=== PATIENT | female | born 1990 | race Caucasian/White ===

== ENCOUNTER 2017-05-18 21:07 | Emergency (ER) | payer OTHER ==
[~2017-05-18] VITALS: Ht 172.7 cm; Wt 121.1 kg
[2017-05-18 21:20] VITALS: BP 142/78
--- NOTE | 2017-05-18 22:01 | PHYS DOC ---
Past Medical History Past Medical History: Bipolar, Other Additional Past Medical Histor: hydronitus supiativia Past Surgical History: Cholecystectomy, Other Additional Past Surgical Histo: wide excision on right axillary Alcohol Use: None Drug Use: None Adult General Chief Complaint Chief Complaint: UPPER EXTREMITY PAIN [facility] HPI Patient is a 26 year old female who presents with left axilla pain from chronic hydradenitis suppurative disease. Patient states she is waiting to have surgery on his left axilla done but she cannot find a doctor locally that can do the procedure. She states she had the procedure done in [place] a couple years ago to the right axilla and it cleared the problem. She states she presented to the ED today because her hydrocodone was not touching her pain. Review of Systems Review of Systems Constitutional: Denies fever or chills [] Eyes: Denies change in visual acuity, redness, or eye pain [] HENT: Denies nasal congestion or sore throat [] Respiratory: Denies cough or shortness of breath [] Cardiovascular: No additional information not addressed in HPI [] GI: Denies abdominal pain, nausea, vomiting, bloody stools or diarrhea [] : Denies dysuria or hematuria [] Musculoskeletal: Denies back pain or joint pain [] Integument: left axilla pain from chronic hydradenitis suppurative disease Neurologic: Denies headache, focal weakness or sensory changes [] Endocrine: Denies polyuria or polydipsia [] Current Medications Current Medications Current Medications Medications (Trade) Dose Ordered Sig/Caitlin Start Time Stop Time Status Last Admin Dose Admin Fentanyl Citrate (Fentanyl 2ml Vial) 75 mcg 1X ONCE 05/18/17 22:15 05/18/17 22:16 Allergies Allergies Allergies Coded Allergies Type Severity Reaction Last Updated Verified morphine Allergy Unknown 05/18/17 Yes Physical Exam Physical Exam Constitutional: Well developed, well nourished, no acute distress, non-toxic appearance. [] Skin: Left axilla with multiple open lesions consistent with chronic hydradenitis suppurative disease no infection. Back: No tenderness, no CVA tenderness. [] Extremities: No tenderness, no cyanosis, no clubbing, ROM intact, no edema. [] Neurologic: Alert and oriented X 3, normal motor function, normal sensory function, no focal deficits noted. [] Psychologic: Affect normal, judgement normal, mood normal. [] Current Patient Data Vital Signs Vital Signs Date Time Temp Pulse Resp B/P (MAP) Pulse Ox O2 Delivery O2 Flow Rate FiO2 05/18/17 21:20 98.1 90 18 99 Room Air 98.1 EKG EKG [] Radiology/Procedures Radiology/Procedures [] Course & Med Decision Making Course & Med Decision Making Pertinent Labs and Imaging studies reviewed. (See chart for details) Patient is in the ED with complaints of left axilla pain from chronic hydradenitis suppurative disease. She was given fentanyl IM in the Ed and instructed to f/u with her doctor or the pain clinic. Dragon Disclaimer Dragon Disclaimer This electronic medical record was generated, in whole or in part, using a voice recognition dictation system. Departure Departure Impression: Primary Impression: Inadequate pain control Additional Impression: Hidradenitis suppurativa of left axilla Disposition: 01 HOME, SELF-CARE Condition: STABLE Referrals: ALTON SWAN MD follow up with your doctor or the provided pain clinic doctor as soon as you can Patient Instructions: Hidradenitis Suppurativa, Sweat Gland Abscess Additional Instructions: You were seen you pain from chronic hydradenitis suppurative. If your pain is not being well managed with your pain medicine at home consider following up with the pain clinic doctor provided or your own doctor. Problem Qualifiers BURAK PRASAD APRN May 18, 2017 22:01
[2017-05-18] MEDS ORDERED: fentaNYL PF VIAL 100 MCG/2 ML VIAL IM ONE (22:15)
== END 2017-05-18 22:22 | disposition home or self-care (01) ==
LOC: ER 21:07
DX: L73.2 Hidradenitis suppurativa (principal); F31.9 Bipolar disorder, unspecified; Z88.5 Allergy status to narcotic agent
CPT/HCPCS: 96372; 99283; J3010

== ENCOUNTER 2018-10-14 16:22 | Emergency (ER) | payer OTHER, MEDICARE ==
[~2018-10-14] VITALS: Ht 175.3 cm; Wt 127.5 kg
[2018-10-14 17:06] VITALS: BP 143/74
--- NOTE | 2018-10-14 18:20 | RAD ---
INDICATION: [place] x 3 months pressure behind eyes, pain down l arm eye twitching no prev COMPARISON: November 25, 2009 TECHNIQUE: Axial CT images obtained through the head without intravenous contrast. One or more of the following individualized dose reduction techniques were utilized for this examination: 1. Automated exposure control; 2. Adjustment of the mA and/or kV according to patient size; 3. Use of iterative reconstruction technique. FINDINGS: No intracranial hemorrhage. No midline shift. Basal cisterns patent. Ventricles and sulci are unremarkable. No acute osseous abnormality. Orbits and paranasal sinuses unremarkable. IMPRESSION: 1. No acute intracranial hemorrhage. Electronically signed by: Per Strauss MD (10/14/2018 6:16 PM) [facility]
[2018-10-14] MEDS ORDERED: BUTA1TAB23 PO (18:42)
--- NOTE | 2018-10-14 18:43 | PHYS DOC ---
Past Medical History Past Medical History: Bipolar, Other Additional Past Medical Histor: hydronitus supiativia Past Surgical History: Cholecystectomy, Other Additional Past Surgical Histo: wide excision on right axillary AND LEFT AXILLARY Alcohol Use: None Drug Use: None Adult General Chief Complaint Chief Complaint: HEADACHE HPI HPI Patient is a 27 year old [f__sex] who presents with [] Review of Systems Review of Systems Constitutional: Denies fever or chills [] Eyes: Denies change in visual acuity, redness, or eye pain [] HENT: Denies nasal congestion or sore throat [] Respiratory: Denies cough or shortness of breath [] Cardiovascular: No additional information not addressed in HPI [] GI: Denies abdominal pain, nausea, vomiting, bloody stools or diarrhea [] : Denies dysuria or hematuria [] Musculoskeletal: Denies back pain or joint pain [] Integument: Denies rash or skin lesions [] Neurologic: Denies headache, focal weakness or sensory changes [] Endocrine: Denies polyuria or polydipsia [] All other systems were reviewed and found to be within normal limits, except as documented in this note. Allergies Allergies Allergies Coded Allergies Type Severity Reaction Last Updated Verified morphine Allergy Unknown 05/18/17 Yes Physical Exam Physical Exam Constitutional: Well developed, well nourished, no acute distress, non-toxic appearance. [] HENT: Normocephalic, atraumatic, bilateral external ears normal, oropharynx moist, no oral exudates, nose normal. [] Eyes: PERRLA, EOMI, conjunctiva normal, no discharge. [] Neck: Normal range of motion, no tenderness, supple, no stridor. [] Cardiovascular:Heart rate regular rhythm, no murmur [] Lungs & Thorax: Bilateral breath sounds clear to auscultation [] Abdomen: Bowel sounds normal, soft, no tenderness, no masses, no pulsatile masses. [] Skin: Warm, dry, no erythema, no rash. [] Back: No tenderness, no CVA tenderness. [] Extremities: No tenderness, no cyanosis, no clubbing, ROM intact, no edema. [] Neurologic: Alert and oriented X 3, normal motor function, normal sensory function, no focal deficits noted. [] Psychologic: Affect normal, judgement normal, mood normal. [] Current Patient Data Vital Signs Vital Signs Date Time Temp Pulse Resp B/P (MAP) Pulse Ox O2 Delivery O2 Flow Rate FiO2 10/14/18 17:06 98.2 88 16 143/74 (97) 100 Room Air 98.2 Lab Values Laboratory Tests Test 10/14/18 17:50 POC Urine HCG, Qualitative Hcg negative (Negative) EKG EKG [] Radiology/Procedures Radiology/Procedures []PATIENT: EMMA LAU DACCOUNT: [id number]#: [id number] : 1990 LOCATION: ER AGE: 27 SEX: F EXAM STATUS: REG ER ORD. PHYSICIAN: JAY JEFFERSON APRN REASON: headache x 3 months PROCEDURE: CT HEAD WO CONTRAST INDICATION: [place] x 3 months pressure behind eyes, pain down l arm eye twitching no prev COMPARISON: November 25, 2009 TECHNIQUE: Axial CT images obtained through the head without intravenous contrast. One or more of the following individualized dose reduction techniques were utilized for this examination: 1. Automated exposure control; 2. Adjustment of the mA and/or kV according to patient size; 3. Use of iterative reconstruction technique. FINDINGS: No intracranial hemorrhage. No midline shift. Basal cisterns patent. Ventricles and sulci are unremarkable. No acute osseous abnormality. Orbits and paranasal sinuses unremarkable. IMPRESSION: 1. No acute intracranial hemorrhage. Electronically signed by: Marcello Robbins MD (10/14/2018 6:16 PM) [facility] DICTATED and SIGNED BY: MARCELLO ROBBINS MD DATE: 10/14/181810 Course & Med Decision Making Course & Med Decision Making Pertinent Labs and Imaging studies reviewed. (See chart for details) [] Dragon Disclaimer Dragon Disclaimer This electronic medical record was generated, in whole or in part, using a voice recognition dictation system. Departure Departure Impression: Primary Impression: Headache Disposition: 01 HOME, SELF-CARE Condition: STABLE Referrals: STEVE ROSARIO DO (PCP) Patient Instructions: General Headache Without Cause Additional Instructions: Take the medication as directed for headache. Follow-up with your primary care provider and medical billing associate for an eye exam as well as further imaging if your headaches continue. If worsening return to the emergency department. Scripts Butalb/Acetaminophen/Caffeine ([id number] [id number]) 1 Each Tablet 1 EACH PO Q8HRS for headache, #14 TAB Prov: JAY JEFFERSON APRN 10/14/18 JAY JEFFERSON APRN Oct 14, 2018 18:43
== END 2018-10-14 18:56 | disposition home or self-care (01) ==
LOC: ER 16:22
DX: R51 Headache (principal); Z90.49 Acquired absence of other specified parts of digestive tract
CPT/HCPCS: 70450; 81025; 99284-25

== ENCOUNTER 2019-09-29 14:18 | Emergency (ER) | payer OTHER ==
[~2019-09-29] VITALS: Ht 175.3 cm; Wt 131.5 kg
[~2019-09-29 14:18] MED LIST: BUTA1TAB23 PO
[2019-09-29 15:01] VITALS: BP 156/91
--- NOTE | 2019-09-29 15:24 | PHYS DOC ---
Past Medical History Past Medical History: Bipolar, Other Additional Past Medical Histor: hydronitus supiativia Past Surgical History: Cholecystectomy, Other Additional Past Surgical Histo: wide excision on right axillary AND LEFT AXILLARY Alcohol Use: None Drug Use: None Adult General Chief Complaint Chief Complaint: FLU SYMPTOM HPI HPI Patient is a 28 year old female hx of bronchitis current smoker who presents to the ED today complaining of subjective fevers, body aches, chills, headaches, cough and nasal congestion, symptoms began 3 days ago. Review of Systems Review of Systems Constitutional: Reports fever bodyaches and chills Eyes: Denies change in visual acuity, redness, or eye pain [] HENT: Reports nasal congestion, and sore throat [] Respiratory: Reports cough, denies shortness of breath [] Cardiovascular: No additional information not addressed in HPI [] GI: Denies abdominal pain, nausea, vomiting, bloody stools or diarrhea [] : Denies dysuria or hematuria [] Musculoskeletal: Denies back pain or joint pain [] Integument: Denies rash or skin lesions [] Neurologic: Reports headache, denies focal weakness or sensory changes [] All other systems were reviewed and found to be within normal limits, except as documented in this note. Current Medications Current Medications Current Medications Medications (Trade) Dose Ordered Sig/Caitlin Start Time Stop Time Status Last Admin Dose Admin Acetaminophen (Tylenol) 1,000 mg 1X ONCE 09/29/19 15:30 09/29/19 15:31 DC Albuterol/ Ipratropium (Duoneb) 3 ml 1X ONCE 09/29/19 15:30 09/29/19 15:31 DC 09/29/19 15:52 3 ML Prednisone (Prednisone) 50 mg 1X ONCE 09/29/19 15:30 09/29/19 15:31 DC Allergies Allergies Allergies Coded Allergies Type Severity Reaction Last Updated Verified morphine Allergy Unknown 05/18/17 Yes Physical Exam Physical Exam Constitutional: Well developed, well nourished, no acute distress, non-toxic appearance. [] HENT: Normocephalic, atraumatic, bilateral external ears normal, oropharynx moist, no oral exudates, nose normal. [] Eyes: PERRLA, EOMI, conjunctiva normal, no discharge. [] Neck: Normal range of motion, no tenderness, supple, no stridor. [] Cardiovascular:Heart rate regular rhythm, no murmur [] Lungs & Thorax: Bilateral breath sounds clear to auscultation [] Abdomen: Bowel sounds normal, soft, no tenderness, no masses, no pulsatile masses. [] Skin: Warm, dry, no erythema, no rash. [] Back: No tenderness, no CVA tenderness. [] Extremities: No tenderness, no cyanosis, no clubbing, ROM intact, no edema. [] Neurologic: Alert and oriented X 3, normal motor function, normal sensory function, no focal deficits noted. [] Psychologic: Affect normal, judgement normal, mood normal. [] Current Patient Data Vital Signs Vital Signs Date Time Temp Pulse Resp B/P (MAP) Pulse Ox O2 Delivery O2 Flow Rate FiO2 09/29/19 15:51 100 Room Air 09/29/19 15:01 99.7 121 16 156/91 (112) 99.7 Lab Values Laboratory Tests Test 09/29/19 15:17 Influenza Type A Antigen Negative (NEGATIVE) Influenza Type B Antigen Negative (NEGATIVE) EKG EKG [] Radiology/Procedures Radiology/Procedures []PROCEDURE: CHEST PA & LATERAL CHEST PA LATERAL History: Flu, fever, cough Comparison: None. Findings: Frontal and lateral views of the chest were obtained. The cardiomediastinal silhouette is normal. Pulmonary vasculature is normal. The lungs are clear. No pleural effusion or pneumothorax is seen. There is no acute bone abnormality. IMPRESSION: No acute cardiopulmonary process. Electronically signed by: Jacob Walton MD (09/29/2019 3:45 PM) [facility] DICTATED and SIGNED BY: JACOB WALTON MD DATE: 09/29/19 1545 Course & Med Decision Making Course & Med Decision Making Pertinent Labs and Imaging studies reviewed. (See chart for details) This is a 28-year-old female patient presenting to the ED today with flulike symptoms including subjective fevers, body aches, chills, nasal congestion, symptoms for 3 days. Temperature in the ED 99.7. Patient was advised to consider smoking cessation Chest x-ray interpreted by radiologist as negative for any acute findings, negative influenza A or B. For her chronic bronchitis patient was given a DuoNeb treatment in the ED, started on prednisone. Patient was discharged with albuterol inhaler, prednisone, Tessalon Perles to use only if cough is severe. OTC medications also recommended for cold symptoms and fever. Dragon Disclaimer Dragon Disclaimer This electronic medical record was generated, in whole or in part, using a voice recognition dictation system. Departure Departure Impression: Primary Impression: Smoking addiction Additional Impressions: Acute bronchitis URI (upper respiratory infection) Disposition: 01 HOME, SELF-CARE Condition: STABLE Referrals: STEVE ROSARIO DO (PCP) follow up next week Patient Instructions: Acute Bronchitis, Smoking, You Can Quit, [id number], Upper Respiratory Infection, Adult, [id number] Additional Instructions: You were evaluated in the emergency room with symptoms consistent of upper respiratory infection and bronchitis. You can continue taking [id number] remedies as well as the prescription medications we gave you. Consider smoking cessation. Take Tylenol/Motrin for pain or fever. Follow-up with your doctor in 1-2 weeks. Scripts Benzonatate (TESSALON PERLE) 100 Mg Capsule 1 CAP PO TID, #30 CAP Prov: BURAK PRASAD APRN 09/29/19 Prednisone (PREDNISONE) 50 Mg Tablet 1 TAB PO DAILY, #5 TAB Prov: BURAK PRASAD APRN 09/29/19 Albuterol Sulfate (Proair Hfa) 8.5 Gm Hfa.aer.ad 2 PUFF IH PRN Q4-6HRS PRN for wheezing for 21 Days, #1 INHALER 0 Refills Prov: BURAK PRASAD APRN 09/29/19 Problem Qualifiers Additional Impressions: Acute bronchitis Bronchitis organism: unspecified organism Qualified Codes: J20.9 - Acute bronchitis, unspecified URI (upper respiratory infection) URI type: unspecified URI Qualified Codes: J06.9 - Acute upper respiratory infection, unspecified BURAK PRASAD APRN Sep 29, 2019 15:24
[2019-09-29] MEDS ORDERED: ACETAMINOPHEN 500 MG TABLET PO ONE (15:30)
[2019-09-29] MEDS ORDERED: predniSONE 10 MG TABLET PO ONE (15:30)
[2019-09-29] MEDS ORDERED: IPRATRPIUM/ALBUTEROL 0.5/2.5MG 3 ML NEBU. NEB ONE (15:30)
--- NOTE | 2019-09-29 15:48 | RAD ---
CHEST PA LATERAL History: Flu, fever, cough Comparison: None. Findings: Frontal and lateral views of the chest were obtained. The cardiomediastinal silhouette is normal. Pulmonary vasculature is normal. The lungs are clear. No pleural effusion or pneumothorax is seen. There is no acute bone abnormality. IMPRESSION: No acute cardiopulmonary process. Electronically signed by: Jacob Fregoso MD (09/29/2019 3:45 PM) [facility]
[2019-09-29 15:49] LABS: INFLUENZA A PATIENT NEGATIVE (NEGATIVE); INFLUENZA B PATIENT NEGATIVE (NEGATIVE)
[2019-09-29] MEDS ORDERED: ALBU2.5V8 IH (16:06)
[2019-09-29] MEDS ORDERED: BENZ100C PO (16:06)
[2019-09-29] MEDS ORDERED: PRED50TA PO (16:06)
== END 2019-09-29 16:29 | disposition home or self-care (01) ==
LOC: ER 14:18
DX: J20.9 Acute bronchitis, unspecified (principal); J06.9 Acute upper respiratory infection, unspecified; F17.200 Nicotine dependence, unspecified, uncomplicated; F31.9 Bipolar disorder, unspecified; Z88.5 Allergy status to narcotic agent
CPT/HCPCS: 71046; 87804; 94640; 99285; J7512; J7620